=== PATIENT | male | born 1940 | race Caucasian/White ===

== ENCOUNTER 2018-03-27 09:05 | Emergency (ER) | payer BC, MEDICARE, OTHER ==
[~2018-03-27] VITALS: Ht 165.1 cm; Wt 64.0 kg
[2018-03-27 13:19] VITALS: BP 115/65
== END 2018-03-27 13:27 | disposition home or self-care (01) ==
LOC: ER 09:05
DX: R09.89 Other specified symptoms and signs involving the circulatory and respiratory systems (principal); I10 Essential (primary) hypertension; J02.9 Acute pharyngitis, unspecified; F03.90 Unspecified dementia, unspecified severity, without behavioral disturbance, psychotic disturbance, mood disturbance, and anxiety; Z88.3 Allergy status to other anti-infective agents
CPT/HCPCS: 71045; 87070; 87430; 99285